=== PATIENT | male | born 1975 | race Caucasian/White ===

== ENCOUNTER 2019-08-18 14:52 | Emergency (ER) | payer SELFPAY ==
[2019-08-18] MEDS ORDERED: NORMAL SALINE 1000 ML 1,000 ML IV ONE ×2 (15:11→19:17)
[2019-08-18] MEDS ORDERED: THIAMINE HCL 100 MG, FOLIC ACID 1 MG in NORMAL SALINE 250 ML IV ONE (15:11)
[2019-08-18] MEDS ORDERED: METOCLOPRAMIDE HCL INJ/PF 10 MG/2 ML SDV IV ONE (15:12)
--- NOTE | 2019-08-18 15:13 | ER Document Report ---
ED Medical Screen (RME) - General Stated Complaint: MEDICAL CLEARANCE Time Seen by Provider: 08/18/19 15:08 - HPI Notes: 08/18/19 15:12 Patient is a 44-year-old male with a history of alcohol abuse who relapsed 2 weeks ago presents per the direction of [facility] for medical clearance as his alcohol content was too high. Patient does not know the number of his alcohol content. Patient states that his last drink was this morning. He does drink liquor and beer. No fever, chest pain, shortness breath, abdominal pain. I have treated and performed a rapid initial assessment of this patient. A comprehensive ED assessment and evaluation of the patient, analysis of test results and completion of medical decision making process will be conducted by additional ED providers. PHYSICAL EXAMINATION: GENERAL: Well-appearing, well-nourished and in no acute distress. A&Ox4. Answers questions appropriately. Patient does have some slurring to his speech, but is otherwise comprehensible. Heart: RRR - Related Data Allergies/Adverse Reactions: No Known Allergies Allergy (Verified 08/18/19 15:07)
[2019-08-18] MEDS ORDERED: LORAZEPAM 1 MG TABLET PO ONE (15:41)
[2019-08-18 15:42] LABS: ABSOLUTE BASOPHILS # (AUTO) 0.1 10^3/uL (0.0-0.2); ABSOLUTE EOSINOPHILS # (AUTO) 0.3 10^3/uL (0.0-0.6); ABSOLUTE LYMPHOCYTES (AUTO) 2.8 10^3/uL (0.5-4.7); ABSOLUTE MONOCYTES (AUTO) 0.4 10^3/uL (0.1-1.4); ABSOLUTE NEUT (AUTO) 2.3 10^3/uL (1.7-8.2); BASOPHILS % (AUTO) 1.2 % (0-2); EOSINOPHILS % (AUTO) 4.6 % (0-6); HEMATOCRIT 43.2 % (37.9-51.0); HEMOGLOBIN 14.7 g/dL (13.5-17.0); MEAN CORPUSCULAR HEMOGLOBIN 30.7 pg (27.0-33.4); MEAN CORPUSCULAR VOLUME 90 fl (80-97); MONOCYTES % (AUTO) 6.2 % (3-13); PLATELET COUNT 192 10^3/uL (150-450); RED BLOOD COUNT 4.78 10^6/uL (4.35-5.55); RED CELL DISTRIBUTION WIDTH 15.1 % (11.5-14.0); TOTAL CELLS COUNTED % (AUTO) 100 %; WHITE BLOOD COUNT 5.8 10^3/uL (4.0-10.5)
[2019-08-18 15:45] LABS: APPEARANCE,URINE CLEAR; BILIRUBIN,URINE NEGATIVE (NEGATIVE); COLOR,URINE YELLOW; GLUCOSE, URINE NEGATIVE (NEGATIVE); KETONES,URINE NEGATIVE (NEGATIVE); LEUKOCYTE ESTERASE,URINE NEGATIVE (NEGATIVE); NITRITE,URINE NEGATIVE (NEGATIVE); PROTEIN,URINE NEGATIVE (NEGATIVE); URINE SPECIFIC GRAVITY 1.018; UROBILINOGEN,URINE NEGATIVE mg/dL (<2.0)
[2019-08-18 15:59] LABS: ALBUMIN 4.6 g/dL (3.5-5.0); ALCOHOL 288 mg/dL (NONE DETECTED); ALKALINE PHOSPHATASE 98 U/L (38-126); ANION GAP 10 (5-19); ASPARTATE AMINO TRANSFERASE 104 U/L (17-59); BILIRUBIN,DIRECT 0.2 mg/dL (0.0-0.4); BILIRUBIN,TOTAL 0.5 mg/dL (0.2-1.3); BLOOD UREA NITROGEN 6 mg/dL (7-20); CALCIUM 9.4 mg/dL (8.4-10.2); CARBON DIOXIDE 29 mmol/L (22-30); CHLORIDE 107 mmol/L (98-107); GLUCOSE 103 mg/dL (75-110); POTASSIUM 4.9 mmol/L (3.6-5.0); TOTAL PROTEIN 8.5 g/dL (6.3-8.2)
[2019-08-18 16:02] LABS: ACETAMINOPHEN < 10 ug/mL (10-30); SALICYLATE < 1.0 mg/dL (2.0-20.0)
[2019-08-18 16:05] LABS: URINE AMPHETAMINES SCREEN NEGATIVE; URINE BENZODIAZEPINES SCREEN NEGATIVE; URINE COCAINE SCREEN NEGATIVE; URINE MARIJUANA (THC) SCREEN NEGATIVE; URINE METHADONE SCREEN NEGATIVE; URINE PHENCYCLIDINE SCREEN NEGATIVE
[2019-08-18 16:07] LABS: URINE BARBITURATES SCREEN UNCONFIRMED POSITIVE
--- NOTE | 2019-08-18 16:16 | ER Document Report ---
ED General - General Chief Complaint: Alcohol Withdrawl Stated Complaint: MEDICAL CLEARANCE Time Seen by Provider: 08/18/19 15:08 Notes: 44-year-old male with history of alcohol abuse presents to ER. Patient wanted to [facility] for detox and was sent to the ER due to his alcohol level being "too elevated." Patient states he has some nausea and feels like he is withdrawing. Last drink was early this morning. Patient denies any vomiting, fever, abdominal pain. - Related Data Allergies/Adverse Reactions: No Known Allergies Allergy (Verified 08/18/19 15:07) Past Medical History - Social History Smoking Status: Current Every Day Smoker Frequency of alcohol use: Heavy Drug Abuse: None Family History: None Patient has suicidal ideation: No Patient has homicidal ideation: No - Past Medical History Cardiac Medical History: Reports: Hx Hypertension Review of Systems - Review of Systems Notes: Constitutional: Negative for fever. HENT: Negative for sore throat. Eyes: Negative for visual changes. Cardiovascular: Negative for chest pain. Respiratory: Negative for shortness of breath. Gastrointestinal: Negative for abdominal pain, vomiting or diarrhea. Genitourinary: Negative for dysuria. Musculoskeletal: Negative for back pain. Skin: Negative for rash. Neurological: Negative for headaches, weakness or numbness. 10 point ROS negative except as marked above and in HPI. Physical Exam - Vital signs Vitals: Temp Pulse BP Pulse Ox 98.2 F 98 134/83 H 95 08/18/19 15:06 08/18/19 15:06 08/18/19 15:06 08/18/19 15:06 - Notes Notes: GENERAL: Well-appearing, well-nourished and in no acute distress. Patient smells heavily of alcohol. HEAD: Atraumatic, normocephalic. EYES: Pupils equal round and reactive to light, extraocular movements intact, sclera anicteric, conjunctiva are normal. NECK: Normal range of motion, supple without lymphadenopathy or JVD. LUNGS: Breath sounds clear to auscultation bilaterally and equal. No wheezes rales or rhonchi. HEART: Regular rate and rhythm without murmurs, rubs or gallops. ABDOMEN: Soft, diffusely tender. No guarding, no rebound. No masses appreciated. EXTREMITIES: Normal range of motion, no pitting or edema. No clubbing or cyanosis. NEUROLOGICAL: Cranial nerves II through XII grossly intact. Slurred speech. PSYCH: Anxious, normal affect. SKIN: Warm, Dry, normal turgor, no rashes or lesions noted. Course - Re-evaluation Re-evalutation: 08/18/19 44-year-old male with history of alcohol abuse presents from [facility] due to "elevated alcohol level." Patient was at [facility] for detox. Patient states last drink was early this morning. Patient appears acutely intoxicated and smells of alcohol. No tremor noted on exam. Abdomen is soft diffusely tender. No guarding or rebound. Patient appears anxious. Work-up initiated. [facility] will accept patient once his alcohol level is less than 200. 08/18/19 17:47 Pt's blood alcohol 288. Pt observed in ER for over 2 hours without any signs of withdrawal requiring admission. Pt is medically cleared to go to [facility]. Discussed plan with Dr. Yusuf Garnica, attending, who agrees. - Vital Signs Vital signs: Temp Pulse Resp BP Pulse Ox 98.2 F 98 134/83 H 95 08/18/19 15:06 08/18/19 15:06 08/18/19 15:06 08/18/19 15:06 - Laboratory Result Diagrams: 08/18/19 15:24 08/18/19 15:24 Laboratory results interpreted by me: 08/18/19 08/18/19 15:24 15:24 RDW 15.1 H Lymph % (Auto) 48.0 H Seg Neutrophils % 40.0 L Sodium 145.9 H BUN 6 L AST 104 H Total Protein 8.5 H Salicylates < 1.0 L Acetaminophen < 10 L Discharge - Discharge Clinical Impression: Alcohol intoxication Qualifiers: Complication of substance-induced condition: uncomplicated Qualified Code(s): F10.920 - Alcohol use, unspecified with intoxication, uncomplicated Condition: Stable Disposition: REHAB FACILITY Instructions: Acute Alcohol Intoxication ([facility]), Chronic Alcoholism ([facility]) Additional Instructions: Please go to [facility] for detox. Please follow-up with your primary care doctor or clinic listed in 1 to 2 weeks. Return to ER if you start having any worsening symptoms, including seizure, abdominal pain, nausea/vomiting, tremors, fever, chest pain, shortness of breath, or any other symptoms that are concerning to you. Referrals: MARINE MCNEIL MD [ACTIVE STAFF] - Follow up in 1 week [facility] [Provider Group] - Follow up in 1 week
[2019-08-19 00:10] VITALS: BP 115/69
--- NOTE | 2019-08-19 17:49 | EKG REPORT ---
SEVERITY:- NORMAL ECG - SINUS RHYTHM : Confirmed by: Khushbu Lares 19-Aug-2019 17:48:34
== END 2019-08-19 00:31 ==
LOC: ER 14:52
DX: F10.920 Alcohol use, unspecified with intoxication, uncomplicated (principal); R11.0 Nausea; F41.9 Anxiety disorder, unspecified; F17.200 Nicotine dependence, unspecified, uncomplicated
CPT/HCPCS: 93005; 99285; 96361; 96375; 96365; 36415; 80307 ×4; 85025; 80053; 81001; 93010; J3490; J2765; J3411; J7030; J7050

== ENCOUNTER 2019-11-17 03:53 | Emergency (ER) | payer SELFPAY ==
--- NOTE | 2019-11-17 05:00 | ER Document Report ---
Entered by NAJMA WEBSTER SCRIBE 11/17/19 0435 Acting as scribe for:MARCELLUS DUNN IV, MD ED General - General Chief Complaint: ETOH Abuse Stated Complaint: REFFERED BY [facility] Time Seen by Provider: 11/17/19 04:28 Information source: Patient Notes: This 44-year-old male presents to the emergency department with a chief complaint of alcohol abuse. Patient states that he was at [facility] earlier this morning and was sent via cab to [facility]. Patient said that when he got to [facility], they did not have record that he was coming. Patient said that they sent him to the emergency department for a medical clearance. Patient said that he had relapsed from his last [facility] visit and has been drinking heavy for the past two weeks. Patient said that his last drink was yesterday at 1600. Patient said that he did contact [facility] yesterday morning and told them that he was going to start "tapering" his drinking. - Related Data Allergies/Adverse Reactions: No Known Allergies Allergy (Verified 11/17/19 04:09) Past Medical History - General Information source: Patient - Social History Smoking Status: Current Every Day Smoker Cigarette use (# per day): Yes Chew tobacco use (# tins/day): No Frequency of alcohol use: Heavy Drug Abuse: Cocaine Family History: None Patient has suicidal ideation: No Patient has homicidal ideation: No - Past Medical History Cardiac Medical History: Reports: Hx Hypertension Surgical Hx: Negative Review of Systems - Review of Systems Constitutional: See HPI, Chills EENT: No symptoms reported Cardiovascular: No symptoms reported Respiratory: No symptoms reported Gastrointestinal: No symptoms reported Genitourinary: No symptoms reported Male Genitourinary: No symptoms reported Musculoskeletal: No symptoms reported Skin: No symptoms reported Hematologic/Lymphatic: No symptoms reported Neurological/Psychological: See HPI, Other - Alcohol abuse -: Yes All other systems reviewed and negative Physical Exam - Vital signs Vitals: Temp Pulse Resp BP Pulse Ox 98.2 F 94 16 145/98 H 100 11/17/19 03:57 11/17/19 03:57 11/17/19 03:57 11/17/19 03:57 11/17/19 03:57 - Notes Notes: Physical Exam: General: Alert, appears well. HEENT: Normocephalic. Atraumatic. PERRL. Extraocular movements intact. Oropharynx clear. Neck: Supple. Non-tender. Respiratory: No respiratory distress. Clear and equal breath sounds bilaterally. Cardiovascular: Regular rate and rhythm. Abdominal: Normal Inspection. Non-tender. No distension. Normal Bowel Sounds. Back: No gross abnormalities. Extremities: Moves all four extremities. Upper extremities: Normal inspection. Normal ROM. Lower extremities: Normal inspection. No edema. Normal ROM. Neurological: Normal cognition. AAOx4. Normal speech. Psychological: Normal affect. Normal Mood. Skin: Warm. Dry. Normal color. Course - Re-evaluation Re-evalutation: 11/17/19 04:56 Apparently the patient had already been cleared at [facility] in the ER and referred to [facility] for treatment of alcohol dependence. Given the patient was just worked up in the ER at [facility], this MD is going to forego repeat laboratory work and EKG on the patient and discharge him with directions to go directly to [facility] for treatment. 1 of the charge nurses has contacted [facility] and states that a bed is ready and available and waiting for the patient. - Vital Signs Vital signs: Temp Pulse Resp BP Pulse Ox 98.2 F 94 16 145/98 H 100 11/17/19 03:57 11/17/19 03:57 11/17/19 03:57 11/17/19 03:57 11/17/19 03:57 Discharge - Discharge Clinical Impression: Alcohol use disorder Condition: Good Disposition: OTHER Additional Instructions: Return to the Emergency Department without delay if any worse. Go directly to [facility] upon discharge from the emergency department. HOME CARE INSTRUCTIONS & INFORMATION: Thank you for choosing us for your medical needs. We hope you're satisfied with the care you received. After you leave, you must properly care for your problem and, at the same time, observe its progress. Any condition can change. Some illnesses can change rapidly over hours or days. If your condition worsens, return to the Emergency Department or see your physician promptly. ABOUT YOUR X-RAYS AND EKG'S: If you had an EKG or X-rays taken, they have been read by the Emergency Physician. The X-rays and EKG's will also be read by a Radiologist or Guitar Instructor within 24 hours. If discrepancies are noted, you will be notified by telephone. Please be certain the ED has a correct telephone number & address where you can be reached. Also, realize that some fractures or abnormalities do not show up on initial X-rays. If your symptoms continue, see your physician. ABOUT YOUR LABORATORY TEST: If you had laboratory tests, the results have been reviewed by the Emergency Physician. Some test results (for example cultures) may not be available for several days. You will be contacted if any test result shows you need additional treatment. Please be certain the ED has a correct telephone number and address where you can be reached. ABOUT YOUR MEDICATIONS: You will receive instructions on how to take your medicine on the prescription label you receive. Additional information may be provided by the Pharmacy. If you have questions afterwards, call the ED for clarification or further instructions. Some prescribed medications may cause drowsiness. Do not perform tasks such as driving a car or operating machinery without consulting your Pharmacist. If you feel you need a refill of pain medication, your condition will need re-evaluation. Please do not call for a refill of any medication. ABOUT YOUR SIGNATURE: Signature of this document acknowledges to followin. Understanding that you received emergency treatment and that you may be released before al medical problems are known or treated. Please be certain the ED has a correct phone number & address where you can be reached. 2. Acknowledgement that you will arrange for follow-up care as recommended. 3. Authorization for the Emergency Physician to provide information to your follow-up Physician in order to maximize your care. AT ANY TIME, IF YOUR SYMPTOMS CHANGE SIGNIFICANTLY OR WORSEN OR YOU DEVELOP NEW SYMPTOMS, RETURN TO THE EMERGENCY DEPARTMENT IMMEDIATELY FOR RE-EVALUATION. OUR GOAL IS TO PROVIDE EXCELLENT MEDICAL CARE! WE HOPE THAT WE HAVE MET YOUR EXPECTATIONS DURING YOUR EMERGENCY DEPARTMENT VISIT AND THAT YOU FEEL YOU HAVE RECEIVED EXCELLENT CARE! I personally performed the services described in the documentation, reviewed and edited the documentation which was dictated to the scribe in my presence, and it accurately records my words and actions.
[2019-11-17 05:06] VITALS: BP 140/80
[2019-11-17 05:22] LABS: ABSOLUTE EOSINOPHILS # (AUTO) 0.2 10^3/uL (0.0-0.6); ABSOLUTE MONOCYTES (AUTO) 0.4 10^3/uL (0.1-1.4); HEMATOCRIT 45.4 % (37.9-51.0); TOTAL CELLS COUNTED % (AUTO) 100 %
[2019-11-17 05:27] LABS: APPEARANCE,URINE SLIGHTLY-CLOUDY; BILIRUBIN,URINE NEGATIVE (NEGATIVE); COLOR,URINE AMBER; GLUCOSE, URINE NEGATIVE (NEGATIVE); KETONES,URINE 20 mg/dL (NEGATIVE); LEUKOCYTE ESTERASE,URINE NEGATIVE (NEGATIVE); NITRITE,URINE NEGATIVE (NEGATIVE); PROTEIN,URINE 30 mg/dL (NEGATIVE); URINE SPECIFIC GRAVITY 1.023
[2019-11-17 05:28] LABS: ABSOLUTE LYMPHOCYTES (AUTO) 1.6 10^3/uL (0.5-4.7); ABSOLUTE NEUT (AUTO) 2.8 10^3/uL (1.7-8.2); EOSINOPHILS % (AUTO) 4.1 % (0-6); HEMOGLOBIN 15.8 g/dL (13.5-17.0); LYMPHOCYTES % (AUTO) 32.1 % (13-45); MEAN CORPUSCULAR HEMOGLOBIN 30.8 pg (27.0-33.4); MEAN CORPUSCULAR HGB CONC 34.9 g/dL (32.0-36.0); MEAN CORPUSCULAR VOLUME 88 fl (80-97); MONOCYTES % (AUTO) 7.2 % (3-13); PLATELET COUNT 140 10^3/uL (150-450); RED BLOOD COUNT 5.15 10^6/uL (4.35-5.55); SEGMENTED NEUTROPHILS % (AUTO) 55.6 % (42-78)
[2019-11-17 05:42] LABS: ALBUMIN 4.9 g/dL (3.5-5.0); ALCOHOL 93 mg/dL (NONE DETECTED); ALKALINE PHOSPHATASE 103 U/L (38-126); ANION GAP 12 (5-19); ASPARTATE AMINO TRANSFERASE 95 U/L (17-59); BILIRUBIN,DIRECT 0.1 mg/dL (0.0-0.4); BLOOD UREA NITROGEN 12 mg/dL (7-20); CALCIUM 9.7 mg/dL (8.4-10.2); CARBON DIOXIDE 26 mmol/L (22-30); CHLORIDE 103 mmol/L (98-107); GLUCOSE 87 mg/dL (75-110); POTASSIUM 4.2 mmol/L (3.6-5.0); TOTAL PROTEIN 8.6 g/dL (6.3-8.2)
[2019-11-17 05:51] LABS: URINE BARBITURATES SCREEN NEGATIVE; URINE BENZODIAZEPINES SCREEN NEGATIVE; URINE MARIJUANA (THC) SCREEN NEGATIVE; URINE METHADONE SCREEN NEGATIVE; URINE PHENCYCLIDINE SCREEN NEGATIVE
[2019-11-17 06:03] LABS: URINE COCAINE SCREEN UNCONFIRMED POSITIVE
== END 2019-11-17 05:06 | disposition other institution (70) ==
LOC: ER 03:53
DX: F10.20 Alcohol dependence, uncomplicated (principal); F17.210 Nicotine dependence, cigarettes, uncomplicated; F14.10 Cocaine abuse, uncomplicated; R68.83 Chills (without fever); I10 Essential (primary) hypertension
CPT/HCPCS: 36415; 80053; 80307; 81001; 85025; 99283

== ENCOUNTER 2019-12-15 21:22 | Emergency (ER) | payer SELFPAY ==
[2019-12-15] MEDS ORDERED: THIAMINE HCL 100 MG, FOLIC ACID 1 MG in NORMAL SALINE 250 ML IV ONE (22:25)
[2019-12-15] MEDS ORDERED: FOLIC ACID INJ 5 MG/1 ML 10 ML VIAL ONE (22:53)
[2019-12-15] MEDS ORDERED: THIAMINE HCL INJ 200 MG/2 ML VIAL ONE (22:53)
[2019-12-15 22:56] LABS: ABSOLUTE BASOPHILS # (AUTO) 0.1 10^3/uL (0.0-0.2); ABSOLUTE EOSINOPHILS # (AUTO) 0.2 10^3/uL (0.0-0.6); ABSOLUTE LYMPHOCYTES (AUTO) 3.6 10^3/uL (0.5-4.7); ABSOLUTE MONOCYTES (AUTO) 0.4 10^3/uL (0.1-1.4); ABSOLUTE NEUT (AUTO) 2.9 10^3/uL (1.7-8.2); BASOPHILS % (AUTO) 1.2 % (0-2); EOSINOPHILS % (AUTO) 3.1 % (0-6); HEMATOCRIT 41.9 % (37.9-51.0); HEMOGLOBIN 14.8 g/dL (13.5-17.0); LYMPHOCYTES % (AUTO) 50.4 % (13-45); MEAN CORPUSCULAR HEMOGLOBIN 30.7 pg (27.0-33.4); MEAN CORPUSCULAR HGB CONC 35.4 g/dL (32.0-36.0); MEAN CORPUSCULAR VOLUME 87 fl (80-97); PLATELET COUNT 165 10^3/uL (150-450); RED BLOOD COUNT 4.82 10^6/uL (4.35-5.55); RED CELL DISTRIBUTION WIDTH 14.5 % (11.5-14.0); SEGMENTED NEUTROPHILS % (AUTO) 40.3 % (42-78); TOTAL CELLS COUNTED % (AUTO) 100 %; WHITE BLOOD COUNT 7.1 10^3/uL (4.0-10.5)
[2019-12-15 23:13] LABS: ALBUMIN 4.6 g/dL (3.5-5.0); ALKALINE PHOSPHATASE 96 U/L (38-126); ANION GAP 12 (5-19); ASPARTATE AMINO TRANSFERASE 113 U/L (17-59); BILIRUBIN,TOTAL 0.7 mg/dL (0.2-1.3); BLOOD UREA NITROGEN 5 mg/dL (7-20); CALCIUM 9.2 mg/dL (8.4-10.2); CARBON DIOXIDE 28 mmol/L (22-30); CHLORIDE 104 mmol/L (98-107); GLUCOSE 110 mg/dL (75-110); POTASSIUM 3.6 mmol/L (3.6-5.0); TOTAL PROTEIN 8.3 g/dL (6.3-8.2)
[2019-12-15 23:43] LABS: ACETAMINOPHEN < 10 ug/mL (10-30); SALICYLATE < 1.0 mg/dL (2.0-20.0)
--- NOTE | 2019-12-15 23:56 | ER Document Report ---
ED Substance Abuse / Acc. OD - General Chief Complaint: Alcohol Withdrawl Stated Complaint: MEDICAL CLEARANCE/[facility] Time Seen by Provider: 12/15/19 22:08 Information source: Patient Notes: Patient presents stating that he has been on a 3-day alcohol binge. Patient states that he had been several months clean but does have a history of alcohol abuse. Patient is trying to go to the [facility] facility and they do have a room for him. Patient is awaiting medical clearance. Patient states that his alcohol was too high and they had him come here. Patient does report some nausea and headache. Patient denies any abdominal pain or vomiting. - HPI Patient complains to provider of: Alcohol abuse Onset: Just prior to arrival Pain Level: 1 Overdose of: Alcohol Associated Symptoms: Nausea/vomiting. denies: Vomiting blood, Diarrhea Similar symptoms previously: Yes Recently seen / treated by doctor: No - Related Data Allergies/Adverse Reactions: No Known Allergies Allergy (Verified 11/17/19 04:09) Home Medications: clonidine-not taken for wks. Past Medical History - General Information source: Patient - Social History Smoking Status: Current Every Day Smoker Frequency of alcohol use: heavy for 34 days Drug Abuse: None Occupation: [employer] Family History: None Patient has homicidal ideation: No - Past Medical History Cardiac Medical History: Reports: Hx Hypertension GI Medical History: Reports: Hx Hepatitis Infectious Medical History: Reports: Hx Hepatitis Surgical Hx: Negative Review of Systems - Review of Systems Constitutional: No symptoms reported. denies: Fever, Recent illness EENT: No symptoms reported Cardiovascular: No symptoms reported. denies: Chest pain Respiratory: No symptoms reported. denies: Cough, Short of breath Gastrointestinal: Nausea. denies: Abdominal pain, Vomiting Genitourinary: No symptoms reported Male Genitourinary: No symptoms reported Musculoskeletal: No symptoms reported Skin: No symptoms reported Hematologic/Lymphatic: No symptoms reported Neurological/Psychological: Headaches. denies: Suicidal ideation Physical Exam - Vital signs Vitals: Temp Pulse Resp BP Pulse Ox 97.6 F 130 H 22 H 159/106 H 99 12/15/19 21:28 12/15/19 21:28 12/15/19 21:28 12/15/19 21:28 12/15/19 21:28 Interpretation: No: Tachycardic - General General appearance: Appears well, Alert In distress: None Notes: Patient smells of alcohol, patient with slow deliberate speech, no tremulousness noted - HEENT Head: Normocephalic, [place]'s eyes Eyes: Normal Conjunctiva: Normal Mouth/Lips: Normal Mucous membranes: Normal Neck: Normal, Supple. No: Lymphadenopathy - Respiratory Respiratory status: No respiratory distress Chest status: Nontender Breath sounds: Normal. No: Rales, Rhonchi, Stridor, Wheezing Chest palpation: Normal - Cardiovascular Rhythm: Regular Heart sounds: S1 appreciated, S2 appreciated Murmur: No - Abdominal Inspection: Normal Distension: No distension Bowel sounds: Normal Tenderness: Nontender - Back Back: Normal, Nontender. No: CVA tenderness - Extremities General upper extremity: Normal inspection, Normal ROM General lower extremity: Normal inspection, Normal ROM - Neurological Neuro grossly intact: Yes Cognition: Normal Charlie Coma Scale Eye Opening: Spontaneous Charlie Coma Scale Verbal: Oriented [place] Coma Scale Motor: Obeys Commands [place] Coma Scale Total: 15 - Psychological Associated symptoms: Normal affect, Normal mood - Skin Skin Temperature: Warm Skin Moisture: Dry Skin Color: Normal Course - Re-evaluation Re-evalutation: 12/16/19 01:00 Patient sleeping, no acute distress. 12/16/19 07:43 Patient sleeping, awaiting repeat blood alcohol test results at this time. 12/16/19 08:43 Charge nurse spoke with staff at [facility] facility who state that they will send someone to meet security staff with patient for transfer. They just request a courtesy phone call prior to. Patient is medically clear at this time. - Vital Signs Vital signs: Temp Pulse Resp BP Pulse Ox 97.9 F 88 20 129/74 H 94 12/16/19 05:18 12/16/19 05:18 12/16/19 05:18 12/16/19 05:18 12/16/19 05:18 - Laboratory Result Diagrams: 12/15/19 22:30 12/15/19 22:30 Laboratory results interpreted by me: 12/15/19 12/15/19 12/16/19 22:30 22:30 05:20 RDW 14.5 H Lymph % (Auto) 50.4 H Seg Neutrophils % 40.3 L BUN 5 L AST 113 H ALT 105 H Total Protein 8.3 H Urine Protein 30 H Urine Urobilinogen 4.0 H Salicylates < 1.0 L Acetaminophen < 10 L Serum Alcohol 323 H* Discharge - Discharge Clinical Impression: Alcohol abuse Condition: Stable Disposition: HOME, SELF-CARE Additional Instructions: Return immediately for any new or worsening symptoms Followup with [facility] directly for additional treatment
[2019-12-16 05:49] LABS: APPEARANCE,URINE CLEAR; BILIRUBIN,URINE NEGATIVE (NEGATIVE); COLOR,URINE YELLOW; GLUCOSE, URINE NEGATIVE (NEGATIVE); KETONES,URINE NEGATIVE (NEGATIVE); LEUKOCYTE ESTERASE,URINE NEGATIVE (NEGATIVE); NITRITE,URINE NEGATIVE (NEGATIVE); PROTEIN,URINE 30 mg/dL (NEGATIVE); URINE SPECIFIC GRAVITY 1.015
[2019-12-16 05:56] LABS: URINE AMPHETAMINES SCREEN NEGATIVE; URINE BENZODIAZEPINES SCREEN NEGATIVE; URINE COCAINE SCREEN NEGATIVE; URINE MARIJUANA (THC) SCREEN NEGATIVE; URINE METHADONE SCREEN NEGATIVE; URINE PHENCYCLIDINE SCREEN NEGATIVE
[2019-12-16 05:57] LABS: URINE BARBITURATES SCREEN UNCONFIRMED POSITIVE
[2019-12-16 08:42] LABS: ALCOHOL 323 mg/dL (NONE DETECTED)
[2019-12-16 09:06] VITALS: BP 145/72
--- NOTE | 2019-12-16 09:54 | EKG REPORT ---
SEVERITY:- NORMAL ECG - SINUS RHYTHM : Confirmed by: Kiran Martinez MD 16-Dec-2019 09:53:30
== END 2019-12-16 08:50 | disposition home or self-care (01) ==
LOC: ER 21:22
DX: F10.10 Alcohol abuse, uncomplicated (principal); R11.0 Nausea; R51 Headache; I10 Essential (primary) hypertension; F17.200 Nicotine dependence, unspecified, uncomplicated
CPT/HCPCS: 93005; 99285; 96365; 36415; 80307 ×4; 85025; 80053; 81001; 93010; J3490; J3411; J7050

== ENCOUNTER 2020-06-29 21:01 | Emergency (ER) | payer SELFPAY ==
--- NOTE | 2020-06-29 21:33 | ER Document Report ---
ED Medical Screen (RME) - General Stated Complaint: ETOH ABUSE SENT FROM [facility] Time Seen by Provider: 06/29/20 21:21 Mode of Arrival: Ambulatory - HPI Notes: Patient is a 44-year-old male who presents with alcohol abuse. Patient states he relapsed and has been on the 4 day alcohol binge. He went to the [facility] crisis [facility] this afternoon for help and was sent to the emergency department because he had a blood alcohol level of 300s. He states his last drink was at 4 PM this afternoon. He reports nausea but denies any vomiting, chest pain, shortness of breath. He also states during the span she fell about 10 to 15 feet from a bridge and hurt his neck. He cannot recall if he hit his head and does not remember much about the event due to alcohol intoxication. - Related Data Allergies/Adverse Reactions: No Known Allergies Allergy (Verified 11/17/19 04:09) Past Medical History - Past Medical History Cardiac Medical History: Reports: Hx Hypertension GI Medical History: Reports: Hx Hepatitis Infectious Medical History: Reports: Hx Hepatitis Physical Exam - Vital signs Vitals: Temp Pulse Resp BP Pulse Ox 98.0 F 99 18 148/90 H 96 06/29/20 21:16 06/29/20 21:16 06/29/20 21:16 06/29/20 21:16 06/29/20 21:16 - HEENT Pupils: PERRL. No: Dilated, [place]point Neck: Other - Swelling to the posterior neck on the right side. - Respiratory Respiratory status: No respiratory distress Breath sounds: Normal - Cardiovascular Rhythm: Regular Heart sounds: Normal auscultation Course - Re-evaluation Re-evalutation: I have greeted and performed a rapid initial assessment of this patient. A comprehensive ED assessment and evaluation of the patient, analysis of test results and completion of medical decision making process will be conducted by an additional ED providers. - Vital Signs Vital signs: Temp Pulse Resp BP Pulse Ox 98.0 F 99 18 148/90 H 96 06/29/20 21:16 06/29/20 21:16 06/29/20 21:16 06/29/20 21:16 06/29/20 21:16
--- NOTE | 2020-06-29 21:51 | ER Document Report ---
ED General - General Chief Complaint: ETOH Abuse Stated Complaint: ETOH ABUSE SENT FROM [facility] Time Seen by Provider: 06/29/20 21:21 Primary Care Provider: MINERVA PEPPER MD [HONORARY] - Follow up as needed Mode of Arrival: Ambulatory - HPI Context: This is a 44-year-old male with a history of alcohol abuse and hypertension presenting to the emergency department by private vehicle for evaluation of back pain and abdominal pain after falling approximately 10 feet off a ladder. Patient states that he is a heavy drinker and has been drinking today. Patient does not know if he is lost consciousness or not. Patient presents complaining of back pain in his lower back that is worse when he moves and better when the remaining still. He describes the back pain as being a 4 out of 5 and describes the pain as sharp and localizes it to the midline of his back. Patient has ge neralized abdominal tenderness that he rates as a 3 out of 5 and does not know how to describe it. Pain seems to be exacerbated by palpation and patient does not know of anything that alleviates the pain. Patient denies chest pain, fever, shortness of breath, known exposure to persons positive for Covid or persons under investigation for COVID-19. Patient denies problems with sense of taste and sense of smell. Patient states he does smoke cigarettes but does not use drugs. Associated symptoms: Other - See HPI Exacerbated by: Other - See HPI Relieved by: Other - See HPI - Related Data Allergies/Adverse Reactions: No Known Allergies Allergy (Verified 11/17/19 04:09) Home Medications: gabapentin Past Medical History - General Information source: Patient - Social History Smoking Status: Current Every Day Smoker Frequency of alcohol use: 3-4 days Drug Abuse: None Family History: None, Reviewed & Not Pertinent - Past Medical History Cardiac Medical History: Reports: Hx Hypertension GI Medical History: Reports: Hx Hepatitis Psychiatric Medical History: Reports: Other - History of alcohol abuse Traumatic Medical History: Reports: Other - Fall off roof prior to today's fall Infectious Medical History: Reports: Hx Hepatitis Review of Systems - Review of Systems Notes: Review of systems as below unless otherwise stated in HPI. CONSTITUTIONAL [No] fever, [No] chills. EYES [No] eye pain. ENT [No] URI symptoms, [No] sore throat, [No] ear pain. CARDIOVASCULAR [No] chest pain, [No] palpitations, [No] edema. RESPIRATORY [No] Cough, [No] SOB, [No] wheezing. GASTROINTESTINAL [+] abdominal pain, [No] nausea, [No] Diarrhea, [No] Vomiting, [No] con stipation, [No] melena, [No] rectal bleeding. GENITOURINARY [No] dysuria, [No] urinary frequency, [No] hematuria, [No] urinary urgency MUSCULOSKELETAL [+] Back pain. SKIN [No] Rash. NEUROLOGIC [No] Headache, [No] recent seizures, [No] paralysis,[No] parathesias. ENDOCRINE [No] polyuria. HEMO/LYMPATIC [No] easy brusing PSYCHIATRIC [No] depression. Physical Exam - Vital signs Vitals: Temp Pulse Resp BP Pulse Ox 98.0 F 99 18 148/90 H 96 06/29/20 21:16 06/29/20 21:16 06/29/20 21:16 06/29/20 21:16 06/29/20 21:16 - Notes Notes: CONSTITUTIONAL [Vital signs reviewed, Patient appears to be in pain, patient also appears intoxicated and smells of EtOH byproducts of metabolism alert and oriented X 3, HEAD [Atraumatic, Normocephalic.] EYES [Eyes are normal to inspection, No discharge from eyes, Extraocular muscles intact, Sclera are normal, Conjunctiva are normal.] ENT [External ears normal to inspection, Nose examination normal, Mouth normal to inspection.] NECK [Normal ROM, No jugular venous distention, No meningeal signs, ] RESPIRATORY CHEST [Chest is nontender, Breath sounds normal, No respiratory distress.] CARDIOVASCULAR [RRR, No murmurs, Normal S1 S2, No rub, No gallop.] ABDOMEN [Abdomen is tender to light palpation in the ivonne umbilical region, No pulsatile masses, No other masses, Bowel sounds normal, No distension, No peritoneal signs, No hernias.] BACK [There is no CVA Tenderness, There is no tenderness to palpation, Normal inspection.] UPPER EXTREMITY [Inspection normal, No cyanosis, No clubbing, No edema, LOWER EXTREMITY [Inspection normal, No cyanosis, No clubbing, No edema, No calf tenderness, NEURO [No focal motor deficits, No focal sensory deficits, patient has no facial droop but does have slurred speech consistent with alcohol intoxication.] SKIN [Skin is warm, Skin is dry, Skin is normal color.] PSYCHIATRIC [Anxious affect. ] Course - Re-evaluation Re-evalutation: 06/30/20 06:00 Results of ED MSE discussed with patient. All questions were answered prior to discharge. Emergency signs and symptoms, reasons to return to the emergency department discussed with patient. - Vital Signs Vital signs: Temp Pulse Resp BP Pulse Ox 98.0 F 99 12 124/94 H 96 06/29/20 21:16 06/29/20 21:16 06/30/20 05:01 06/30/20 05:00 06/30/20 05:01 - Laboratory Result Diagrams: 06/29/20 22:07 06/29/20 22:07 Laboratory results interpreted by me: 06/29/20 06/29/20 22:07 22:07 WBC 3.9 L RBC 4.30 L RDW 14.5 H Plt Count 103 L Lymph % (Auto) 50.9 H Absolute Neuts (auto) 1.6 L Seg Neutrophils % 41.1 L Sodium 145.1 H Potassium 3.5 L Chloride 108 H AST 94 H ALT 70 H Salicylates < 1.0 L Acetaminophen < 10 L - Diagnostic Test Radiology reviewed: Reports reviewed - EKG Interpretation by Me Additional EKG results interpreted by me: 06/30/20 06:01 EKG obtained on 06/29/2020 at 2215 hrs. was interpreted by this MD. Findings: Normal sinus rhythm, rate 88, right axis deviation, IA intervals appear within normal limits, P waves preceding QRS complexes, QRS complex appears narrow, QTC is 455, there are no obvious patterns of ST segment elevation, depression or reciprocal changes seen to suggest acute myocardial ischemia or infarction. When compared to EKG from 12/15/2019 the gross morphology between the 2 EKGs appears unchanged. Impression: Normal sinus rhythm with right axis deviation and nonspecific ST segments. Discharge - Discharge Clinical Impression: Acute alcohol intoxication, Alcohol use disorder Accidental fall Qualifiers: Encounter type: initial encounter Qualified Code(s): W19.XXXA - Unspecified fall, initial encounter Condition: Stable Disposition: OTHER Additional Instructions: Return to the Emergency Department without delay if any worse. Go directly to [place] upon discharge. HOME CARE INSTRUCTIONS & INFORMATION: Thank you for choosing us for your medical needs. We hope you're satisfied with the care you received. After you leave, you must properly care for your problem and, at the same time, observe its progress. Any condition can change. Some illnesses can change rapidly over hours or days. If your condition worsens, return to the Emergency Department or see your physician promptly. ABOUT YOUR X-RAYS AND EKG'S: If you had an EKG or X-rays taken, they have been read by the Emergency Physician. The X-rays and EKG's will also be read by a Radiologist or Election Assistant within 24 hours. If discrepancies are noted, you will be notified by telephone. Please be certain the ED has a correct telephone number & address where you can be reached. Also, realize that some fractures or abnormalities do not show up on initial X-rays. If your symptoms continue, see your physician. ABOUT YOUR LABORATORY TEST: If you had laboratory tests, the results have been reviewed by the Emergency Physician. Some test results (for example cultures) may not be available for several days. You will be contacted if any test result shows you need additional treatment. Please be certain the ED has a correct telephone number and address where you can be reached. ABOUT YOUR MEDICATIONS: You will receive instructions on how to take your medicine on the prescription label you receive. Additional information may be provided by the Pharmacy. If you have questions afterwards, call the ED for clarification or further instructions. Some prescribed medications may cause drowsiness. Do not perform tasks such as driving a car or operating machinery without consulting your Pharmacist. If you feel you need a refill of pain medication, your condition will need re-evaluation. Please do not call for a refill of any medication. ABOUT YOUR SIGNATURE: Signature of this document acknowledges to followin. Understanding that you received emergency treatment and that you may be released before al medical problems are known or treated. Please be certain the ED has a correct phone number & address where you can be reached. 2. Acknowledgement that you will arrange for follow-up care as recommended. 3. Authorization for the Emergency Physician to provide information to your follow-up Physician in order to maximize your care. AT ANY TIME, IF YOUR SYMPTOMS CHANGE SIGNIFICANTLY OR WORSEN OR YOU DEVELOP NEW SYMPTOMS, RETURN TO THE EMERGENCY DEPARTMENT IMMEDIATELY FOR RE-EVALUATION. OUR GOAL IS TO PROVIDE EXCELLENT MEDICAL CARE! WE HOPE THAT WE HAVE MET YOUR EXPECTATIONS DURING YOUR EMERGENCY DEPARTMENT VISIT AND THAT YOU FEEL YOU HAVE RECEIVED EXCELLENT CARE! Acute Alcohol Intoxication Your evaluation revealed very high levels of alcohol. You can from drinking a large amount of alcohol rapidly! Further, there's the risk of falls, traffic accidents, and fights. A high portion (about 50 percent) of the serious injuries seen in hospital emergency rooms are caused by alcohol. Alcohol overdosage is usually due to an underlying emotional or psychiatric problem. You may benefit from counselling. If "binge" drinking is an ongoing problem for you, or if you drink ANY AMOUNT of alcohol EVERY day, you most likely have a tendency to alcoholism. You should avoid alcohol totally. We can refer you for treatment. Persons with alcohol problems are often also prone to other addictions -- you should discuss any use of medications or drugs with the doctor. You should be watched at home for the next several hours by someone who has not been drinking. Get extra fluids for the next 24 hours. Call the doctor if there is repeated vomiting, increasing headache, decreasing level of alertness, or any other worsening. Chronic Alcoholism Your evaluation reveals evidence of chronic alcoholism, an addiction to alcohol. The tendency to alcoholism may be inherited. Chronic use of alcohol weakens muscles, causes fatty deposits in the liver, damages the stomach, makes you more prone to infections, and can cause defects in unborn children. In the long run, brain atrophy and cirrhosis of the liver result. You are also at greater risk for certain types of cancer, such as cancer of the mouth, throat, stomach, and liver. Counselling services are available to help you. In-hospital treatment programs often help. Support groups such as Alcoholics Anonymous can be very useful in beating this addiction. Your physician can make a referral for you. As alcoholics often are prone to other addictions, you should discuss your use of any other medications with the doctor. Referrals: MINERVA PEPPER MD [HONORARY] - Follow up as needed
[2020-06-29] MEDS: NORMAL SALINE 1000 ML 1,000 ML IV PRN ×2 (22:12→22:43)
--- NOTE | 2020-06-29 22:17 | RADIOLOGY REPORT (SQ) ---
INDICATION: fall while intoxicated. Pain post fall COMPARISON: None CORRELATION: None TECHNIQUE: Noncontrast spiral axial CT images were obtained from the skull base to vertex. Noncontrast spiral axial CT imaging through the cervical spine with multiplanar reconstructions. This exam was performed according to our departmental dose-optimization program, which includes automated exposure control, adjustment of the mA and/or kV according to patient size and/or use of iterative reconstruction techniques. FINDINGS: BRAIN: There is no evidence of acute intracranial hemorrhage, midline shift, mass effect or mass lesion. [place]-white differentiation is normal. There is no evidence of acute large territory infarct. Ventricles and extracerebral spaces are within normal limits, for age. The visualized paranasal sinuses are grossly clear. The orbits and eyeballs are unremarkable. The mastoid air cells are clear. Skull base and calvarium appear intact. CERVICAL SPINE: No acute displaced fracture is identified of the cervical spine. Alignment is anatomic. No focal alignment abnormality is identified. The uncovertebral joints and facets demonstrate osteoarthritis most prominent C5-6 and C6-7. Surrounding soft tissues of the neck are unremarkable. Chest dictated separately IMPRESSION: No acute intracranial process is identified. No acute bony injury is seen to the cervical spine. Osteoarthritis
--- NOTE | 2020-06-29 22:24 | RADIOLOGY REPORT (SQ) ---
CLINICAL INDICATION: Fall from 10 feet blunt chest trauma. . TECHNIQUE: Contrast enhanced spiral axial CT images obtained through chest abdomen and pelvis with multiplanar reconstructions. This exam was performed according to our departmental dose-optimization program, which includes automated exposure control, adjustment of the mA and/or kV according to patient size and/or use of iterative reconstruction techniques. COMPARISON: None. CORRELATION: None. FINDINGS: Chest: The heart is of normal size. No pericardial effusion. No bulky mediastinal adenopathy. The lungs are grossly clear. No consolidation or edema. No effusion or pneumothorax. Dependent atelectasis Abdomen: The liver is heterogeneous. It is nodular. The gallbladder is nondistended without inflammatory change. The pancreas is unremarkable. The spleen is unremarkable. The adrenals are unremarkable. The kidneys appear grossly normal without evidence of urolithiasis or hydronephrosis. There is no evidence of free air. No free fluid. No bulky adenopathy. Abdominal aorta is nonaneurysmal. Pelvis: The bowel is nonobstructed. The bowel is unopacified with oral contrast. Pelvic contents are unremarkable. The appendix is normal. Coarse calcification within the prostate Visualized bones are unremarkable. IMPRESSION: No acute intrathoracic injury No acute intra-abdominal injury No acute bony injury is seen.
[2020-06-29 22:30] LABS: ABSOLUTE EOSINOPHILS # (AUTO) 0.1 10^3/uL (0.0-0.6); ABSOLUTE MONOCYTES (AUTO) 0.2 10^3/uL (0.1-1.4); ABSOLUTE NEUT (AUTO) 1.6 10^3/uL (1.7-8.2); EOSINOPHILS % (AUTO) 2.3 % (0-6); HEMATOCRIT 39.1 % (37.9-51.0); HEMOGLOBIN 13.5 g/dL (13.5-17.0); LYMPHOCYTES % (AUTO) 50.9 % (13-45); MEAN CORPUSCULAR HEMOGLOBIN 31.5 pg (27.0-33.4); MEAN CORPUSCULAR HGB CONC 34.6 g/dL (32.0-36.0); MEAN CORPUSCULAR VOLUME 91 fl (80-97); MONOCYTES % (AUTO) 4.7 % (3-13); PLATELET COUNT 103 10^3/uL (150-450); RED CELL DISTRIBUTION WIDTH 14.5 % (11.5-14.0); SEGMENTED NEUTROPHILS % (AUTO) 41.1 % (42-78); TOTAL CELLS COUNTED % (AUTO) 100 %; WHITE BLOOD COUNT 3.9 10^3/uL (4.0-10.5)
[2020-06-29 23:03] LABS: ALCOHOL 280 mg/dL (NONE DETECTED); ALKALINE PHOSPHATASE 100 U/L (38-126); ANION GAP 12 (5-19); ASPARTATE AMINO TRANSFERASE 94 U/L (17-59); BILIRUBIN,DIRECT 0.1 mg/dL (0.0-0.4); BILIRUBIN,TOTAL 0.6 mg/dL (0.2-1.3); BLOOD UREA NITROGEN 7 mg/dL (7-20); CALCIUM 8.6 mg/dL (8.4-10.2); CARBON DIOXIDE 25 mmol/L (22-30); CHLORIDE 108 mmol/L (98-107); GLUCOSE 102 mg/dL (75-110); POTASSIUM 3.5 mmol/L (3.6-5.0); TOTAL PROTEIN 7.5 g/dL (6.3-8.2)
[2020-06-29 23:04] LABS: ACETAMINOPHEN < 10 ug/mL (10-30); SALICYLATE < 1.0 mg/dL (2.0-20.0)
--- NOTE | 2020-06-30 00:35 | EKG REPORT ---
SEVERITY:- ABNORMAL ECG - SINUS RHYTHM BORDERLINE RIGHT AXIS DEVIATION CONSIDER LEFT VENTRICULAR HYPERTROPHY : Confirmed by: Tracie Irving MD 30-Jun-2020 00:34:52
[2020-06-30 02:00] LABS: APPEARANCE,URINE CLEAR; BILIRUBIN,URINE NEGATIVE (NEGATIVE); COLOR,URINE STRAW; GLUCOSE, URINE NEGATIVE (NEGATIVE); KETONES,URINE NEGATIVE (NEGATIVE); LEUKOCYTE ESTERASE,URINE NEGATIVE (NEGATIVE); NITRITE,URINE NEGATIVE (NEGATIVE); PROTEIN,URINE NEGATIVE (NEGATIVE); UROBILINOGEN,URINE NEGATIVE mg/dL (<2.0)
[2020-06-30 02:24] LABS: URINE AMPHETAMINES SCREEN NEGATIVE; URINE BARBITURATES SCREEN NEGATIVE; URINE BENZODIAZEPINES SCREEN NEGATIVE; URINE COCAINE SCREEN NEGATIVE; URINE MARIJUANA (THC) SCREEN NEGATIVE; URINE METHADONE SCREEN NEGATIVE; URINE PHENCYCLIDINE SCREEN NEGATIVE
[2020-06-30 06:27] VITALS: BP 136/94
== END 2020-06-30 06:24 | disposition other institution (70) ==
LOC: ER 21:01
DX: R10.9 Unspecified abdominal pain (principal); R10.817 Generalized abdominal tenderness; M54.5 Low back pain; W11.XXXA Fall on and from ladder, initial encounter; F10.129 Alcohol abuse with intoxication, unspecified; I10 Essential (primary) hypertension; F17.210 Nicotine dependence, cigarettes, uncomplicated; Z79.899 Other long term (current) drug therapy
CPT/HCPCS: 93005; 99285; 96360; 96361; 86900; 86901; 36415; 86850; 80307 ×4; 85025; 80053; 81001; 70450; 71260; 72125; 74177; 93010; J7030